=== PATIENT | female | born 1940 | race Asian ===

== ENCOUNTER 2020-12-15 10:19 | Emergency (ER) | payer MEDICARE, MEDICAID ==
[~2020-12-15] VITALS: Ht 152.4 cm; Wt 70.5 kg
[2020-12-15] MEDS ORDERED: [UNRECOGNIZED DRUG - REMARK] PO (10:43)
[2020-12-15] MEDS ORDERED: RISP0.5T61 PO (10:43)
[2020-12-15 12:35] LABS: BASOPHILS % (AUTO) 1.4 % (0.0-2.0); EOSINOPHILS % (AUTO) 2.8 % (1.0-6.0); HEMATOCRIT 43.1 % (36-46); HEMOGLOBIN 14.7 g/dL (12.0-16.0); LYMPHOCYTES # (AUTO) 2.3 K/uL (1.0-4.8); LYMPHOCYTES % (AUTO) 39.1 % (22.0-44.0); MEAN CORPUSCULAR HGB CONC 34.1 G/dL (31.0-37.0); MEAN CORPUSCULAR VOLUME 91 fL (80-100); MONOCYTES # (AUTO) 0.4 K/uL (0.1-1.0); MONOCYTES % (AUTO) 7.1 % (2.0-9.0); NEUTROPHILS % (AUTO) 49.6 % (40.0-70.0); PLATELET COUNT (AUTO) 176 K/uL (150-450); RED BLOOD CELL COUNT(AUTO) 4.75 MIL/uL (4.00-5.20); RED CELL DISTRIBUTION WIDTH 15.4 % (11.5-14.5)
[2020-12-15 12:50] LABS: CREATININE 1.12 mg/dL (0.60-1.30); POTASSIUM 3.6 mmol/L (3.5-5.1)
[2020-12-15 13:01] LABS: ALBUMIN 3.1 g/dL (3.4-5.0)
[2020-12-15 13:24] VITALS: BP 165/71
== END 2020-12-15 14:18 | disposition home or self-care (01) ==
LOC: EMS 10:19
DX: R60.0 Localized edema (principal); Z87.891 Personal history of nicotine dependence; E11.9 Type 2 diabetes mellitus without complications; I10 Essential (primary) hypertension
CPT/HCPCS: 93971; 99285